=== PATIENT | male | born 1990 | race Two or more races ===

== ENCOUNTER 2018-03-23 05:58 | Day surgery (SDC) | payer BC ==
[2018-03-19 12:15] VITALS: BMI 27.9
[2018-03-23] MEDS ORDERED: EPINEPHrine 1:1,000 1 MG/1 ML - 30ML VIAL (INJECTION) ONE (07:16)
[2018-03-23] MEDS ORDERED: MIDAZOLAM HCL 2 MG/2 ML SINGLE DOSE VIAL ONE (07:31)
[2018-03-23] MEDS ORDERED: ROPIVACAINE HCL 0.5% 30ML VIAL ONE (07:31)
[2018-03-23] MEDS ORDERED: PROPOFOL 20 ML ONE ×5 (07:51→09:19)
[2018-03-23] MEDS ORDERED: ceFAZolin SODIUM 1 GM VIAL ONE (07:51)
[2018-03-23] MEDS ORDERED: SUCCINYLCHOLINE CHLORIDE 200 MG/10 ML VIAL ONE (07:52)
[2018-03-23] MEDS ORDERED: ONDANSETRON 4 MG/2 ML VIAL ONE (08:23)
[2018-03-23] MEDS ORDERED: DEXAMETHASONE SOD PHOSPHATE 4 MG/1 ML VIAL ONE (08:23)
[2018-03-23] MEDS ORDERED: ACETAMINOPHEN 325 MG TABLET (FP) PO PRN (10:00)
[2018-03-23] MEDS ORDERED: oxyCODONE HCL 5 MG TABLET PO PRN (10:00)
[2018-03-23] MEDS ORDERED: IBUPROFEN 400 MG TABLET (FP) PO PRN (10:00)
--- NOTE | 2018-03-23 11:19 | OPR ---
OPERATIVE REPORT Date of Procedure: 03/23/2018 Procedure: Right Shoulder- 1. Diagnostic arthroscopy. 2. Arthroscopic anterior capsular plication and labral repair (60988) 3. Glenohumeral partial synovectomy (27798) 4. Arthroscopic limited debridement of glenohumeral joint (95063) Preoperative Diagnoses: 1. 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 Hill-Sachs Lesion Postoperative Diagnoses: 1. Right shoulder recurrent anterior instability 2. Anterior Labral Periosteal Sleeve Avulsion 3. Non-engaging Hill-Sachs Lesion 4. Glenohumeral synovitis. Surgeon: Emeterio Araujo DO Assistants: Berny Eugene DO Anesthesia: Regional block perfomed by anesthesiolgist Estimated Blood Loss: Minimal Drains: None Total IV Fluids: Per anesthesia record Specimens: None Implants: (3) Arthrex 2.9mm PushLock with 1.5mm LabralTape Complications: None Disposition: PACU Condition: Hemodynamically stable Indications: Mr. Gallego presented with a history of recurrent right shoulder dislocation, a clinical exam consistent with anterior instability, and MRI demonstrating an anterior labral tear and Hill-Sachs lesion. We discussed the various treatment options, including non-operative management and surgical approach. He ultimately elected to proceed with surgical intervention after discussion of the risks, benefits, alternatives. We discussed risks including but not limited to, bleeding, pain, infection, scarring, damage to neurovascular structures, recurrent instability, stiffness, blood clots, pulmonary embolus, need for additional surgery, incomplete relief of pain, and incomplete return of function. He expressed understanding and wished to proceed. He also voiced a good understanding of the expected results and the post-operative rehab involved. Procedure Details: Mr. Gallego was identified in the preoperative area. The right shoulder was marked as the operative site and consent was completed and confirmed. A regional block was performed by the anesthesia department in preoperative holding. He was later transferred to the operating room and placed into beach chair position with all bony prominences appropriately padded. The neck was in neutral alignment. A surgical time-out was performed identifying the correct patient, procedure, and site. Antibiotics were given within 1 hour prior to surgical incision. The upper extremity was prepped and draped in standard sterile fashion. Examination under anesthesia: Passive range of motion of the right shoulder showed forward elevation of 160, abduction 100, external rotation at side 45 , SABER 90, SABIR 40. This was compared to her contralateral shoulder which shows forward elevation of 160, abduction 90 external rotation at side 45, SABER 90, and SABIR 40. There was 2+ anterior instability of the right shoulder. Diagnostic arthroscopy: We began the procedure with the standard posterolateral portal, entered the glenohumeral joint. An anterior superolateral portal was made within the rotator cuff interval. This was done under direct visualization with the assistance of a spinal needle. A cannula was inserted and a probe was used to assist with diagnostic arthroscopy and we visualized from both posteriorly and anteriorly. Evaluation of the glenohumeral joint showed mild to moderate synovitis in the rotator interval. The superior labrum was intact. The anterior inferior labrum was detached from the glenoid and scarred onto the anterior medial neck. The posterior labrum was probed and found to be intact. There were no loose bodies in the inferior pouch. There was no HAGL lesion. The biceps tendon was intact. The axillary recess was empty. The subscapularis was probed and found to be intact. The articular surface of the supraspinatus was intact. The articular surface of the infraspinatus and teres minor tendons were intact. The humeral head showed no significant chondral defects. The glenoid showed chondral fraying. There was a Hill-Sachs lesion on the posterolateral head. This did not engage the anterior glenoid rim with glenohumeral motion. Arthroscopic limited debridement of the glenohumeral joint: We used a combination of the arthroscopic motorized shaver and radiofrequency device to perform a limited debridement inside the glenohumeral joint. The hyperemia, erythema, and synovitis of the joint and joint capsule was focally debrided. Chondral fraying was debrided to a stable edge. Labral fraying was also resected and debrided to a stable edge. Arthroscopic anterior capsular plication and labral repair: We began our capsular plication and anterior labral repair by first preparing the anterior glenoid bone. We used a rasp on the anterior medial aspect of the glenoid to free up the scarred labrum off to about the 5:30 position. We rasped the medial anterior glenoid bone for a bony preparation to accept the labrum and capsule. After this was done, we placed a second cannula anteroinferiorly just superior to the subscapularis tendon. We used a switching stick followed by a metal trocar and 8.25 mm ribbed cannula was placed. We used this cannula to place our anchors. We used a suture lasso device to pass a single tape suture through the anterior-inferior capsular tissue. This was done in such a way to plicate and bring superior and medial the capsular tissue that had fallen inferiorly and laterally. This was inserted into a 2.9 mm knotless PushLock anchor. The first anchor was placed at about the 5:30 o'clock position. We placed this after drilling the glenoid bone just at the glenoid rim. The anchor was placed without difficulty. This anchor immediately tightened up the anterior-inferior aspect of the glenohumeral capsule. Of note, the previous drive-through sign was already eliminated from this plication stitch. We repeated these steps placing additional sutures and anchors at 4:30 o'clock and and 3:30 o'clock positions. This reapproximated the anterior labrum and capsular tissues nicely recreating anterior-inferior bumper and again recentering the humeral head well on the glenoid. Wound closure: The posterior arthroscopic portal incisions was closed with 3-0 Monocryl subcuticular stitch with Steri strips. The anterior and superolateral incision were closed with 3-0 nylon. The shoulder was sterilely dressed and the arm was placed in a shoulder immobilizer. Post-operative Details: I spoke with the patient regarding the operation after surgery. Postoperative rehabilitation: Arthroscopic anterior capsular plication ([facility] ) protocol. He will remain in a sling for 6 weeks. No range of motion until cleared. No strengthening for at least 3 months. Attestation for orthodontic assistant: Berny Eugene DO acted as the orthodontic assistant. There was no qualified resident or physician licensed investment sales assistant available to do so. Emeterio Araujo DO Orthopedic Surgery
[2018-03-23 12:10] VITALS: TEMP 97.4
[2018-03-23 12:12] VITALS: BP 122/59; PULSE 59
[2018-03-23] MEDS ORDERED: ONDANSETRON 4 MG/2 ML VIAL IVPUSH PRN (16:00)
--- NOTE | 2018-03-24 17:30 | PATH ---
Surgical Pathology Report Patient Name: JOHNNIE ARGUETA Med. Rec. #: [id number] /Age/Gender: 1990 (Age: 27) / M Account: [id number] Location: ON LICENSE OF [facility] AMB[facility] Taken: 03/23/2018 Received: 03/23/2018 Reported: 03/24/2018 Physicians: Emeterio Araujo DO Specimen(s) Received RIGHT SHOULDER SHAVINGS Clinical History Right shoulder recurrent instability Final Diagnosis SHOULDER SHAVINGS, RIGHT, ARTHROSCOPY: FRAGMENTS OF BENIGN CARTILAGE, DENSE FIBROCONNECTIVE TISSUE, AND REACTIVE SYNOVIUM. Electronically Signed Audra Heaton M.D. Gross Description Received in formalin labeled "right shoulder shavings," is a 2.5 x 1.5 x 0.3 cm aggregate of howell-yellow soft tissue fragments. The formalin is filtered and the specimen is entirely submitted in one cassette. /03/23/201803/23/2018
== END 2018-03-23 11:50 | disposition home or self-care (01) ==
LOC: FASU 05:58
PROVIDERS: ATTEND Orthopaedic Surgery
PROC: 0RBJ4ZZ Excision of Right Shoulder Joint, Percutaneous Endoscopic Approach (ICD-10-PCS; 2018-03-23)
PROC: 0RBJ4ZZ Excision of Right Shoulder Joint, Percutaneous Endoscopic Approach (ICD-10-PCS; 2018-03-23)
PROC: 0RQJ4ZZ Repair Right Shoulder Joint, Percutaneous Endoscopic Approach (ICD-10-PCS; principal; 2018-03-23 08:26)
DX: M24.411 Recurrent dislocation, right shoulder (principal); S43.431A Superior glenoid labrum lesion of right shoulder, initial encounter; X58.XXXA Exposure to other specified factors, initial encounter; M65.811 Other synovitis and tenosynovitis, right shoulder; Y93.9 Activity, unspecified; Y92.9 Unspecified place or not applicable
CPT/HCPCS: 88304-TC; 94760